=== PATIENT | female | born 1930 | race Caucasian/White ===

== ENCOUNTER 2018-08-28 12:37 | Inpatient (IN) | payer MEDICARE, OTHER, MEDICAID ==
--- NOTE | 2018-08-28 13:15 | RADIOLOGY REPORT (SQ) ---
EXAM DESCRIPTION: CHEST SINGLE VIEW COMPLETED DATE/TIME: 08/28/2018 1:08 pm REASON FOR STUDY: sob COMPARISON: 02/18/2015 EXAM PARAMETERS: NUMBER OF VIEWS: One view. TECHNIQUE: Single frontal radiographic view of the chest acquired. RADIATION DOSE: NA LIMITATIONS: None. FINDINGS: LUNGS AND PLEURA: Cannot exclude limited opacification in the right base. Cannot exclude mild pulmonary edema. MEDIASTINUM AND HILAR STRUCTURES: No masses. Contour normal. HEART AND VASCULAR STRUCTURES: Cardiomegaly PE BONES: No acute findings. HARDWARE: None in the chest. OTHER: No other significant finding. IMPRESSION: Cardiomegaly. Cannot exclude mild pulmonary edema. Cannot exclude limited right lower lobe pneumonia. TECHNICAL DOCUMENTATION: JOB ID: [id number] [employer]- All Rights Reserved Reading location - IP/workstation name: [email or web address]
[2018-08-28 13:22] LABS: ABSOLUTE LYMPHOCYTES (AUTO) 0.6 10^3/uL (0.5-4.7); ABSOLUTE MONOCYTES (AUTO) 0.3 10^3/uL (0.1-1.4); ABSOLUTE NEUT (AUTO) 4.3 10^3/uL (1.7-8.2); BASOPHILS % (AUTO) 0.7 % (0-2); EOSINOPHILS % (AUTO) 0.1 % (0-6); HEMATOCRIT 26.1 % (36.0-47.0); LYMPHOCYTES % (AUTO) 11.9 % (13-45); MEAN CORPUSCULAR HEMOGLOBIN 22.7 pg (27.0-33.4); MEAN CORPUSCULAR HGB CONC 30.8 g/dL (32.0-36.0); MEAN CORPUSCULAR VOLUME 74 fl (80-97); MONOCYTES % (AUTO) 5.8 % (3-13); PLATELET COUNT 152 10^3/uL (150-450); RED BLOOD COUNT 3.54 10^6/uL (3.72-5.28); RED CELL DISTRIBUTION WIDTH 21.2 % (11.5-14.0); SEGMENTED NEUTROPHILS % (AUTO) 81.5 % (42-78); TOTAL CELLS COUNTED % (AUTO) 100 %; WHITE BLOOD COUNT 5.3 10^3/uL (4.0-10.5)
[2018-08-28 13:27] LABS: INTERNATIONAL RATION (INR) 1.49; PROTHROMBIN TIME 18.8 SEC (11.4-15.4)
[2018-08-28 13:38] LABS: ALANINE AMINOTRANSFERASE 24 U/L (9-52); ALBUMIN 2.6 g/dL (3.5-5.0); ALKALINE PHOSPHATASE 72 U/L (38-126); ASPARTATE AMINO TRANSFERASE 17 U/L (14-36); BILIRUBIN,DIRECT 0.4 mg/dL (0.0-0.4); BILIRUBIN,TOTAL 0.7 mg/dL (0.2-1.3); BLOOD UREA NITROGEN 19 mg/dL (7-20); CALCIUM 8.4 mg/dL (8.4-10.2); GLUCOSE 102 mg/dL (75-110); POTASSIUM 3.9 mmol/L (3.6-5.0); TOTAL PROTEIN 6.1 g/dL (6.3-8.2)
[2018-08-28 13:43] LABS: ANION GAP 6 (5-19); CARBON DIOXIDE 28 mmol/L (22-30); CHLORIDE 108 mmol/L (98-107); SODIUM 141.5 mmol/L (137-145)
[2018-08-28] MEDS ORDERED: VANCOMYCIN HCL INJ 1000 MG VIAL IV ONE ×2 (13:57→16:30)
[2018-08-28] MEDS ORDERED: CEFEPIME 1 GM/D5W RTU 1 GM/50 ML RTUPB IV SCH ×2 (14:00→17:00)
--- NOTE | 2018-08-28 14:22 | ER Document Report ---
Entered by DYAN CISNEROS SCRIBE 08/28/18 1314 Acting as scribe for:BIB BRYSON DO ED Respiratory Problem - General Stated Complaint: SHORTNESS OF BREATH Time Seen by Provider: 08/28/18 12:53 Notes: 87-year-old female who presents to the emergency department today with complaints of "worsening pneumonia" according to EMS. The patient is demented at baseline and is nonverbal at baseline so history is limited. According to [facility] records, the patient has been on Levaquin for x1 week for pneumonia. TRAVEL OUTSIDE OF THE [place] IN LAST 30 DAYS: No - Related Data Allergies/Adverse Reactions: No Known Allergies Allergy (Verified 04/13/14 20:26) Past Medical History - General Information source: Emergency Med Personnel, [facility] Records - Social History Smoking Status: Unknown if Ever Smoked Family History: Reviewed & Not Pertinent - Past Medical History Cardiac Medical History: Reports: Hx Atrial Fibrillation, Hx Congestive Heart Failure, Hx Heart Attack, Hx Hypercholesterolemia, Hx Hypertension Neurological Medical History: Reports: Hx Cerebrovascular Accident - HEMORRHAGIC CVA GI Medical History: Reports: Hx Gastroesophageal Reflux Disease Musculoskeletal Medical History: Reports Hx Arthritis Psychiatric Medical History: Reports: Hx Dementia, Hx Depression Past Surgical History: Reports: Hx Cardiac Surgery - MV REPAIR - Immunizations Hx Diphtheria, Pertussis, Tetanus Vaccination: No Hx Pneumococcal Vaccination: 06/12/14 Review of Systems - Review of Systems -: Yes ROS unobtainable due to patient's medical condition Physical Exam - Vital signs Interpretation: Hypoxic - General General appearance: Alert In distress: Mild - HEENT Head: Atraumatic Neck: Normal - Respiratory Respiratory status: Respiratory distress - mild Breath sounds: Rales - R base - Cardiovascular Rhythm: Regular - Abdominal Tenderness: Nontender - Extremities General upper extremity: Other - RUE wnl General lower extremity: Other - at baseline - Neurological Neuro grossly intact: Yes - at cognitive baseline Course - Re-evaluation Re-evalutation: 08/28/18 13:28 Patient is an 87-year-old female who has had increased trouble breathing at her facility. She has been on Levaquin recently for pneumonia. Chest x-ray showing right lower lobe pneumonia that is persistent. Patient is in some mild distress although she is resting comfortably on nasal cannula. Of note, she is DNR/DNI. Culture sent, antibiotics initiated. Patient with hemoglobin of 8. Per old records she has h/o anemia and is also a [employer]. Called Dr. Sood, accepts patient for admission. - Laboratory Result Diagrams: 08/28/18 13:07 08/28/18 13:07 Laboratory results interpreted by me: 08/28/18 08/28/18 08/28/18 13:07 13:07 13:07 RBC 3.54 L Hgb 8.0 L Hct 26.1 L MCV 74 L MCH 22.7 L MCHC 30.8 L RDW 21.2 H Seg Neutrophils % 81.5 H Lymphocytes % 11.9 L PT 18.8 H Chloride 108 H Total Protein 6.1 L Albumin 2.6 L - Diagnostic Test Radiology reviewed: Image reviewed, Reports reviewed - EKG Interpretation by Me EKG shows normal: Sinus rhythm Discharge - Discharge Clinical Impression: Hypoxia Pneumonia Qualifiers: Pneumonia type: due to unspecified organism Laterality: right Lung location: lower lobe of lung Qualified Code(s): J18.1 - Lobar pneumonia, unspecified organism Condition: Stable Disposition: ADMITTED INPATIENT Admitting Provider: [facility] Admitted: Medical Floor Scribe Attestation: 08/28/18 14:21 I personally performed the services described in the documentation, reviewed and edited the documentation which was dictated to the scribe in my presence, and it accurately records my words and actions. I personally performed the services described in the documentation, reviewed and edited the documentation which was dictated to the scribe in my presence, and it accurately records my words and actions.
[2018-08-28] MEDS ORDERED: (PENDING PHARMACY ID) (Multivitamin/Iron/Folic Acid [Centrum Complete Multivit Tab] 1 TAB) PO SCH (20:00)
[2018-08-28] MEDS ORDERED: CEFEPIME 2 GM/D5W RTU 50 ML IV SCH (20:00)
[2018-08-28] MEDS ORDERED: ENOXAPARIN SODIUM SQ SCH (20:00)
[2018-08-28] MEDS ORDERED: (PENDING PHARMACY ID) (Calcium Carbonate/Vitamin D3 [Calcium 600 + Vit D 400 Tablet] 1 TAB PO SCH (20:00)
[2018-08-28] MEDS ORDERED: PEG OU SCH ×2 (20:00→20:45)
[2018-08-28] MEDS ORDERED: PROPYLENE GLYCOL OU SCH ×2 (20:00→20:45)
[2018-08-28 20:16] LABS: VENOUS BLOOD BASE EXCESS 2.2 mmol/L; VENOUS BLOOD PCO2 42.8 mmHg (35-63); VENOUS BLOOD PH 7.42 (7.30-7.42)
[2018-08-28 20:29] LABS: CREATINE KINASE < 20 U/L (30-135)
--- NOTE | 2018-08-28 20:52 | RADIOLOGY REPORT (SQ) ---
EXAM DESCRIPTION: CT CHEST WITHOUT IV CONTRAST COMPLETED DATE/TME: 08/28/2018 00:00 CLINICAL HISTORY: 87 years Female pneumonia COMPARISON: None. TECHNIQUE: Contiguous axial images obtained through the chest without IV contrast. Reformatted images obtained. This exam was performed according to our department optimization program which includes automated exposure control, adjustment of the mA and/or kv according to patient size and/or use of iterative reconstruction technique. FINDINGS: The aorta is elongated and calcified. Coronary calcification. Marked cardiac enlargement. Bilateral pleural effusions. There is a paucity of subcutaneous fat. There is alveolar infiltrate in the right upper and right lower lobe concerning for pneumonia. Small amount of patchy density and atelectasis in the right middle lobe and in the left lung base and lingula. Vertebral plana with vertebral plasty changes at T12. There is moderate compression at L1 and moderate to severe compression at T11. Vertebra plana at T8 and T5, and T3. Mild compression at T2. Old sternal fracture. Staghorn calculus in the left kidney. Calculi in the right kidney. IMPRESSION: Marked cardiac enlargement Alveolar infiltrate in the right upper and lower lobe concerning for pneumonia with bilateral pleural effusions. Asymmetric edema is not excluded but thought less likely Patchy areas of atelectasis or early infiltrate on the left Numerous vertebral compression fractures as described Bilateral renal calculi Subcutaneous edema which may reflect anasarca
--- NOTE | 2018-08-28 20:52 | PDOC H&P ---
History of Present Illness Admission Date/PCP: 08/28/18 14:12 BROWN CHOU MD History of Present Illness: JONATHAN OROZCO is a 87 year old female, she has multiple comorbid conditions, very advanced dementia, resident of the skilled nursing at [facility], she was transferred from the skilled nursing to the emergency room at [facility] for evaluation of pneumonia. She was treated at the skilled nursing for right lower lobe pneumonia with antibiotic Levaquin for the last 7 days, patient condition continues to decline, she is more symptomatic with increased work of breathing. I received a call from the skilled nursing staff that patient condition was not improving a skilled nursing staff was requesting to have another chest x- ray done, I advised the skilled nursing staff to call the family to find out what plan of action they preferred for the patient knowing that patient is advanced dementia with adult failure to thrive and to me she looks like she is moribund, family preferred that patient be referred to the hospital. In the emergency room she was evaluated a chest x-ray was done that suggest pneumonia. CT chest of the lung was done without contrast demonstrated elongated aorta and calcified, coronary calcification, marked cardiac enlargement, bilateral pleural effusion, alveolar infiltrate in the right upper and right lower lobe concerning for pneumonia small amount of patchy density, atelectasis in the right middle lobe the left lung base. There is osteoporotic moderate compression at L1, severe compression at T12 also found was a staghorn calculus in the left kidney. No history could be obtained for this patient because of the advanced dementia, she has poor language skills, patient overall condition is very poor, she is a DNR status. Past Medical History Cardiac Medical History: Reports: Atrial Fibrillation, Congestive Heart Failure, Myocardial Infarction, Hyperlipidema, Hypertension GI Medical History: Reports: Gastroesophageal Reflux Disease Musculoskeltal Medical History: Reports: Arthritis Psychiatric Medical History: Reports: Dementia, Depression Hematology: Reports: Anemia Social History Smoking Status: Former Smoker Frequency of Alcohol Use: None Hx Recreational Drug Use: No Hx Prescription Drug Abuse: No Family History Family History: Reviewed & Not Pertinent Parental Family History Reviewed: Yes Children Family History Reviewed: Yes Sibling(s) Family History Reviewed.: Yes Medication/Allergy Home Medications: Aliskiren Hemifumarate [Tekturna 150 mg Tablet] 150 mg PO DAILY 08/28/18 Aripiprazole [Abilify 5 mg Tablet] 5 mg PO QHS 08/28/18 Aspirin [Aspirin 81 mg Chewable Tablet] 81 mg PO DAILY 08/28/18 Calcium Carbonate/Vitamin D3 [Calcium 600 + Vit D 400 Tablet] 1 tab PO BID 08/28/18 Cyanocobalamin (Vitamin B-12) [Vitamin B-12 1000 mcg Tablet] 1,000 mcg PO DAILY 08/28/18 Diltiazem HCl [Cardizem 30 mg Tablet] 30 mg PO Q8 08/28/18 Enoxaparin Sodium [Lovenox Inj 60 mg/0.6 ml Disp.syrin] 45 mg SQ Q12 08/28/18 Montelukast Sodium [Singulair 10 mg Tablet] 10 mg PO QHS 08/28/18 Multivitamin/Iron/Folic Acid [Centrum Complete Multivit Tab] 1 tab PO DAILY 08/28/18 Propylene Glycol/Peg 400/Pf [Systane 0.3-0.4% Eye Drop] 1 drop OU BID 08/28/18 RX: Ergocalciferol (Vitamin D2) [Drisdol 50,000 unit (1.25MG) Capsule] 50,000 unit PO [id number] 08/28/18 RX: Mirtazapine 7.5 mg PO QHS 08/28/18 Rivastigmine [Exelon 9.5 mg/24 Hr Transdermal Patch] 1 patch TOP DAILY 08/28/18 Sennosides/Docusate 8.6-50 mg [Senna Plus Tablet] 2 tab PO Q12 08/28/18 Sertraline HCl [Zoloft 50 mg Tablet] 50 mg PO DAILY 08/28/18 Allergies/Adverse Reactions: No Known Allergies Allergy (Verified 04/13/14 20:26) Review of Systems ROS unobtainable: Other - Dementia Physical Exam Vital Signs: Temp Pulse Resp BP Pulse Ox 97.8 F 22 H 137/59 H 100 08/28/18 13:02 08/28/18 19:00 08/28/18 19:00 08/28/18 19:00 Intake & Output 08/27/18 08/28/18 08/29/18 06:59 06:59 06:59 Intake Total 50 Balance 50 General appearance: PRESENT: other - Patient elderly female, looks moribund, extreme cachexia intercostal space retraction Eye exam: PRESENT: PERRLA Respiratory exam: PRESENT: accessory muscle use, rales, retraction Cardiovascular exam: PRESENT: irregular rhythm, +S1, +S2 GI/Abdominal exam: PRESENT: soft Extremities exam: PRESENT: other - There is extreme muscle atrophy Neurological exam: PRESENT: alert, other Skin exam: PRESENT: dry, other - Skin is dry, ecchymosis Results Laboratory Results: 08/28/18 13:07 08/28/18 13:07 08/28/18 08/28/18 08/28/18 13:07 13:07 13:50 WBC 5.3 RBC 3.54 L Hgb 8.0 L Hct 26.1 L MCV 74 L MCH 22.7 L MCHC 30.8 L RDW 21.2 H Plt Count 152 Seg Neutrophils % 81.5 H Lymphocytes % 11.9 L Monocytes % 5.8 Eosinophils % 0.1 Basophils % 0.7 Absolute Neutrophils 4.3 Absolute Lymphocytes 0.6 Absolute Monocytes 0.3 Absolute Eosinophils 0.0 Absolute Basophils 0.0 VBG pH VBG pCO2 VBG HCO3 VBG Base Excess Sodium 141.5 Potassium 3.9 Chloride 108 H Carbon Dioxide 28 Anion Gap 6 BUN 19 Creatinine 0.69 Est GFR ( Amer) > 60 Est GFR (Non-Af Amer) > 60 Glucose 102 Lactic Acid 1.2 Calcium 8.4 Total Bilirubin 0.7 AST 17 ALT 24 Alkaline Phosphatase 72 Total Protein 6.1 L Albumin 2.6 L 08/28/18 19:37 WBC RBC Hgb Hct MCV MCH MCHC RDW Plt Count Seg Neutrophils % Lymphocytes % Monocytes % Eosinophils % Basophils % Absolute Neutrophils Absolute Lymphocytes Absolute Monocytes Absolute Eosinophils Absolute Basophils VBG pH 7.42 VBG pCO2 42.8 VBG HCO3 27.0 VBG Base Excess 2.2 Sodium Potassium Chloride Carbon Dioxide Anion Gap BUN Creatinine Est GFR ( Amer) Est GFR (Non-Af Amer) Glucose Lactic Acid Calcium Total Bilirubin AST ALT Alkaline Phosphatase Total Protein Albumin 08/28/18 08/28/18 13:07 13:07 Creatine Kinase < 20 L Troponin I 0.013 Impressions: Chest X-Ray 08/28/18 12:55 IMPRESSION: Cardiomegaly. Cannot exclude mild pulmonary edema. Cannot exclude limited right lower lobe pneumonia. Assessment & Plan - Diagnosis (1) Bilateral pneumonia Qualifiers: Pneumonia type: due to unspecified organism Lung location: unspecified part of lung Qualified Code(s): J18.9 - Pneumonia, unspecified organism Is this a current diagnosis for this admission?: Yes Plan: She has bilateral pneumonia, she was treated with Levaquin for 7 days in the skilled nursing, cefepime will be added to cover Pseudomonas. Patient is obviously in respiratory distress but she is maintaining adequate oxygenation on nasal cannula, she is not. Candidate for intubation. She has multiple comorbid conditions (2) Staghorn calculus Is this a current diagnosis for this admission?: Yes Plan: The serum creatinine is normal (3) Dementia Qualifiers: Dementia type: Alzheimer's disease Alzheimer's disease onset: unspecified onset Dementia behavioral disturbance: with behavioral disturbance Qualified Code(s): G30.9 - Alzheimer's disease, unspecified; F02.81 - Dementia in other diseases classified elsewhere with behavioral disturbance Is this a current diagnosis for this admission?: Yes
[2018-08-28] MEDS ORDERED: CEFEPIME 1 GM/D5W RTU 1 GM/50 ML RTUPB IV ONE (22:00)
[2018-08-28] MEDS: IPRATROPIUM/ALBUTEROL 0.5-2.5 MG/3 ML AMPUL NEB PRN (22:04)
[2018-08-28] MEDS: MIRTAZAPINE 15 MG TABLET PO SCH (22:48)
[2018-08-28] MEDS: SENNOSIDES/DOCUSATE 8.6-50 MG 1 EACH TABLET PO SCH (22:48)
[2018-08-28] MEDS: DILTIAZEM HCL 30 MG TABLET PO SCH (22:48)
[2018-08-28] MEDS: MONTELUKAST SODIUM 10 MG TABLET PO SCH (22:48)
[2018-08-28] MEDS: ARIPIPRAZOLE 5 MG TABLET PO SCH (22:48)
--- NOTE | 2018-08-28 22:58 | EKG REPORT ---
SEVERITY:- ABNORMAL ECG - ATRIAL FIBRILLATION MULTIFORM VENTRICULAR PREMATURE COMPLEXES BORDERLINE IVCD WITH LAD : Confirmed by: Braydon Foster 28-Aug-2018 22:57:44
[2018-08-28 23:40] LABS: CREATINE KINASE MB < 0.22 ng/mL (<4.55); TROPONIN I < 0.012 ng/mL
[2018-08-29] MEDS: DILTIAZEM HCL 30 MG TABLET PO SCH ×3 (06:22→21:15)
[2018-08-29 07:06] LABS: ABSOLUTE LYMPHOCYTES (AUTO) 0.6 10^3/uL (0.5-4.7); ABSOLUTE MONOCYTES (AUTO) 0.3 10^3/uL (0.1-1.4); ABSOLUTE NEUT (AUTO) 6.3 10^3/uL (1.7-8.2); BASOPHILS % (AUTO) 0.4 % (0-2); EOSINOPHILS % (AUTO) 0.1 % (0-6); HEMATOCRIT 27.4 % (36.0-47.0); HEMOGLOBIN 8.6 g/dL (12.0-15.5); LYMPHOCYTES % (AUTO) 8.7 % (13-45); MEAN CORPUSCULAR HGB CONC 31.3 g/dL (32.0-36.0); MEAN CORPUSCULAR VOLUME 74 fl (80-97); MONOCYTES % (AUTO) 3.7 % (3-13); PLATELET COUNT 164 10^3/uL (150-450); RED BLOOD COUNT 3.73 10^6/uL (3.72-5.28); RED CELL DISTRIBUTION WIDTH 21.3 % (11.5-14.0); SEGMENTED NEUTROPHILS % (AUTO) 87.1 % (42-78); TOTAL CELLS COUNTED % (AUTO) 100 %; WHITE BLOOD COUNT 7.2 10^3/uL (4.0-10.5)
[2018-08-29 07:25] LABS: ALANINE AMINOTRANSFERASE 19 U/L (9-52); ALBUMIN 2.7 g/dL (3.5-5.0); ALKALINE PHOSPHATASE 72 U/L (38-126); ANION GAP 9 (5-19); ASPARTATE AMINO TRANSFERASE 20 U/L (14-36); BILIRUBIN,DIRECT 0.4 mg/dL (0.0-0.4); BILIRUBIN,TOTAL 0.8 mg/dL (0.2-1.3); BLOOD UREA NITROGEN 18 mg/dL (7-20); CALCIUM 8.6 mg/dL (8.4-10.2); CARBON DIOXIDE 26 mmol/L (22-30); CHLORIDE 106 mmol/L (98-107); GLUCOSE 88 mg/dL (75-110); POTASSIUM 3.8 mmol/L (3.6-5.0); SODIUM 141.1 mmol/L (137-145); TOTAL PROTEIN 6.2 g/dL (6.3-8.2)
[2018-08-29 08:12] LABS: AMORPHOUS SEDIMENT,URINE TRACE /HPF; APPEARANCE,URINE CLOUDY; BILIRUBIN,URINE NEGATIVE (NEGATIVE); COLOR,URINE YELLOW; GLUCOSE, URINE NEGATIVE (NEGATIVE); KETONES,URINE NEGATIVE (NEGATIVE); LEUKOCYTE ESTERASE,URINE LARGE (NEGATIVE); NITRITE,URINE NEGATIVE (NEGATIVE); PROTEIN,URINE 30 mg/dL (NEGATIVE); URINE SPECIFIC GRAVITY 1.011; UROBILINOGEN,URINE NEGATIVE mg/dL (<2.0)
[2018-08-29 08:21] LABS: URINE CREATININE 27.9 mg/dL (15-278)
[2018-08-29] MEDS: IPRATROPIUM/ALBUTEROL 0.5-2.5 MG/3 ML AMPUL NEB PRN ×2 (08:53→20:29)
[2018-08-29] MEDS ORDERED: PRENATAL VITAMIN W DHA CAPSULE PO SCH (10:00)
[2018-08-29] MEDS: RIVASTIGMINE 9.5 MG/24 HR PATCH.TD24 TOP SCH (10:08)
[2018-08-29] MEDS: ALISKIREN HEMIFUMARATE 150 MG TABLET PO SCH (10:08)
[2018-08-29] MEDS: SERTRALINE HCL 50 MG TABLET PO SCH (10:08)
[2018-08-29] MEDS: CEFEPIME 1 GM/D5W RTU 1 GM/50 ML RTUPB IV SCH (10:09)
[2018-08-29] MEDS: NORMAL SALINE 1000 ML 1,000 ML IV PRN (10:14)
[2018-08-29] MEDS: CYANOCOBALAMIN (VITAMIN B-12) 1,000 MCG TABLET PO SCH (10:19)
[2018-08-29] MEDS: SENNOSIDES/DOCUSATE 8.6-50 MG 1 EACH TABLET PO SCH ×2 (10:20→21:14)
[2018-08-29] MEDS: MULTIVITAMIN TABLET PO SCH (10:20)
[2018-08-29] MEDS: CALCIUM CARBONATE 250 MG/VITAMIN D3 125 UNIT TABLET PO SCH ×2 (10:20→17:28)
[2018-08-29] MEDS ORDERED: ENOXAPARIN SODIUM INJ 40 MG/0.4 ML DISP.SYRIN SUBCUT SCH (14:00)
[2018-08-29 14:44] LABS: ARTERIAL BLOOD BASE EXCESS 2.5 mmol/L; ARTERIAL BLOOD H2CO3 0.98 mmol/L (1.05-1.35); ARTERIAL BLOOD HCO3 25.3 mmol/L (20-24); ARTERIAL BLOOD O2 SATURATION 94.8 % (94-98); ARTERIAL BLOOD PCO2 32.7 mmHg (35-45); ARTERIAL BLOOD PH 7.51 (7.35-7.45); ARTERIAL BLOOD PO2 65.8 mmHg (80-100); ARTERIAL BLOOD TOTAL CO2 26.3 mmol/L (21-25)
[2018-08-29 14:45] LABS: ARTERIAL BLOOD FIO2 2.5 L
--- NOTE | 2018-08-29 14:57 | PDOC PROGRESS REPORT ---
Subjective Progress Note for:: 08/29/18 Subjective:: Patient was seen by the bedside, overall condition is very poor Reason For Visit: PNEUMONIA, FAILED OUTPATIENT TREATMENT Physical Exam Vital Signs: Temp Pulse Resp BP Pulse Ox 98.7 F 92 32 H 152/60 H 98 08/29/18 11:25 08/29/18 11:25 08/29/18 11:25 08/29/18 11:25 08/29/18 12:00 Pulse Oximeter Continuous Start: 08/28/18 19 :51 Freq: RTQ4 Status: Active Protocol: Document 08/29/18 12:00 [facility] (Rec: 08/29/18 12:12 [facility] [id number]) Pulse Oximetry Assessment Oxygen Saturation (92-100) 98 Oxygen Flow Rate (L/min) 2 Oxygen Delivery Method Nasal Cannula Equipment Usage Equipment in Use Continuous SpO2 Machine # 5 Intake & Output 08/28/18 08/29/18 08/30/18 06:59 06:59 06:59 Intake Total 227 200 Balance 227 200 Weight 41.3 kg General appearance: PRESENT: mild distress Respiratory exam: PRESENT: accessory muscle use, retraction, rhonchi Cardiovascular exam: PRESENT: irregular rhythm, +S1, +S2 GI/Abdominal exam: PRESENT: soft Neurological exam: PRESENT: alert Results Laboratory Results: 08/29/18 06:11 08/29/18 06:11 08/28/18 08/29/18 08/29/18 19:37 06:11 06:11 WBC 7.2 RBC 3.73 Hgb 8.6 L Hct 27.4 L MCV 74 L MCH 23.0 L MCHC 31.3 L RDW 21.3 H Plt Count 164 Seg Neutrophils % 87.1 H Lymphocytes % 8.7 L Monocytes % 3.7 Eosinophils % 0.1 Basophils % 0.4 Absolute Neutrophils 6.3 Absolute Lymphocytes 0.6 Absolute Monocytes 0.3 Absolute Eosinophils 0.0 Absolute Basophils 0.0 Carbonic Acid HCO3/H2CO3 Ratio ABG pH ABG pCO2 ABG pO2 ABG HCO3 ABG O2 Saturation ABG Base Excess VBG pH 7.42 VBG pCO2 42.8 VBG HCO3 27.0 VBG Base Excess 2.2 FiO2 Sodium 141.1 Potassium 3.8 Chloride 106 Carbon Dioxide 26 Anion Gap 9 BUN 18 Creatinine 0.63 Est GFR ( Amer) > 60 Est GFR (Non-Af Amer) > 60 Glucose 88 Calcium 8.6 Total Bilirubin 0.8 AST 20 ALT 19 Alkaline Phosphatase 72 Total Protein 6.2 L Albumin 2.7 L Urine Color Urine Appearance Urine pH Ur Specific [place] Urine Protein Urine Glucose (UA) Urine Ketones Urine Blood Urine Nitrite Ur Leukocyte Esterase Urine WBC (Auto) Urine RBC (Auto) 08/29/18 08/29/18 07:30 14:25 WBC RBC Hgb Hct MCV MCH MCHC RDW Plt Count Seg Neutrophils % Lymphocytes % Monocytes % Eosinophils % Basophils % Absolute Neutrophils Absolute Lymphocytes Absolute Monocytes Absolute Eosinophils Absolute Basophils Carbonic Acid 0.98 L HCO3/H2CO3 Ratio 25:1 ABG pH 7.51 H ABG pCO2 32.7 L ABG pO2 65.8 L ABG HCO3 25.3 H ABG O2 Saturation 94.8 ABG Base Excess 2.5 VBG pH VBG pCO2 VBG HCO3 VBG Base Excess FiO2 2.5 L Sodium Potassium Chloride Carbon Dioxide Anion Gap BUN Creatinine Est GFR ( Amer) Est GFR (Non-Af Amer) Glucose Calcium Total Bilirubin AST ALT Alkaline Phosphatase Total Protein Albumin Urine Color YELLOW Urine Appearance CLOUDY Urine pH 6.0 Ur Specific [place] 1.011 Urine Protein 30 H Urine Glucose (UA) NEGATIVE Urine Ketones NEGATIVE Urine Blood MODERATE H Urine Nitrite NEGATIVE Ur Leukocyte Esterase LARGE H Urine WBC (Auto) >182 Urine RBC (Auto) 38 08/28/18 08/28/18 08/28/18 13:07 13:07 22:42 Creatine Kinase < 20 L CK-MB (CK-2) < 0.22 Troponin I 0.013 < 0.012 Impressions: Chest CT 08/28/18 00:00 IMPRESSION: Marked cardiac enlargement Alveolar infiltrate in the right upper and lower lobe concerning for pneumonia with bilateral pleural effusions. Asymmetric edema is not excluded but thought less likely Patchy areas of atelectasis or early infiltrate on the left Numerous vertebral compression fractures as described Bilateral renal calculi Subcutaneous edema which may reflect anasarca Chest X-Ray 08/28/18 12:55 IMPRESSION: Cardiomegaly. Cannot exclude mild pulmonary edema. Cannot exclude limited right lower lobe pneumonia. Assessment & Plan - Diagnosis (1) Adult failure to thrive Is this a current diagnosis for this admission?: Yes (2) Bilateral pneumonia Qualifiers: Pneumonia type: due to unspecified organism Lung location: unspecified part of lung Qualified Code(s): J18.9 - Pneumonia, unspecified organism Is this a current diagnosis for this admission?: Yes Plan: She has bilateral pneumonia, very poor prognosis, Continue present treatment, will consider palliative/comfort care for this patient extremely poor prognosis (3) Staghorn calculus Is this a current diagnosis for this admission?: Yes Plan: The serum creatinine is normal but she has severe muscle atrophy, she 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 the serum creatinine in this setting is a poor measure of kidney function (4) Dementia Qualifiers: Dementia type: Alzheimer's disease Alzheimer's disease onset: unspecified onset Dementia behavioral disturbance: with behavioral disturbance Qualified Code(s): G30.9 - Alzheimer's disease, unspecified; F02.81 - Dementia in other diseases classified elsewhere with behavioral disturbance Is this a current diagnosis for this admission?: Yes (5) Proteinuria Qualifiers: Proteinuria type: unspecified Qualified Code(s): R80.9 - Proteinuria, unspecified Is this a current diagnosis for this admission?: Yes (6) Cachexia Is this a current diagnosis for this admission?: Yes (7) Undernutrition Is this a current diagnosis for this admission?: Yes
[2018-08-29] MEDS: ENOXAPARIN SODIUM INJ 60 MG/0.6 ML DISP.SYRIN SUBCUT SCH ×2 (17:46→17:47)
[2018-08-29] MEDS ORDERED: CEFEPIME 1 GM/D5W RTU 1 GM/50 ML RTUPB IV SCH (18:00)
[2018-08-29] MEDS: MONTELUKAST SODIUM 10 MG TABLET PO SCH (21:14)
[2018-08-29] MEDS: ARIPIPRAZOLE 5 MG TABLET PO SCH (21:14)
[2018-08-29] MEDS: MIRTAZAPINE 15 MG TABLET PO SCH (21:15)
[2018-08-30] MEDS: NORMAL SALINE 1000 ML 1,000 ML IV PRN ×2 (00:50→18:13)
[2018-08-30 05:39] LABS: ABSOLUTE LYMPHOCYTES (AUTO) 0.5 10^3/uL (0.5-4.7); ABSOLUTE MONOCYTES (AUTO) 0.2 10^3/uL (0.1-1.4); ABSOLUTE NEUT (AUTO) 5.3 10^3/uL (1.7-8.2); BASOPHILS % (AUTO) 0.2 % (0-2); EOSINOPHILS % (AUTO) 0.2 % (0-6); HEMATOCRIT 25.3 % (36.0-47.0); LYMPHOCYTES % (AUTO) 7.8 % (13-45); MEAN CORPUSCULAR HEMOGLOBIN 22.6 pg (27.0-33.4); MEAN CORPUSCULAR HGB CONC 31.3 g/dL (32.0-36.0); MEAN CORPUSCULAR VOLUME 72 fl (80-97); MONOCYTES % (AUTO) 3.1 % (3-13); PLATELET COUNT 172 10^3/uL (150-450); RED BLOOD COUNT 3.49 10^6/uL (3.72-5.28); RED CELL DISTRIBUTION WIDTH 21.3 % (11.5-14.0); SEGMENTED NEUTROPHILS % (AUTO) 88.7 % (42-78); TOTAL CELLS COUNTED % (AUTO) 100 %
[2018-08-30 05:42] LABS: HEMOGLOBIN 7.9 g/dL (12.0-15.5)
[2018-08-30] MEDS: DILTIAZEM HCL 30 MG TABLET PO SCH ×3 (05:49→21:47)
[2018-08-30 07:41] LABS: ALANINE AMINOTRANSFERASE 18 U/L (9-52); ALBUMIN 2.3 g/dL (3.5-5.0); ALKALINE PHOSPHATASE 64 U/L (38-126); ANION GAP 7 (5-19); ASPARTATE AMINO TRANSFERASE 19 U/L (14-36); BILIRUBIN,DIRECT 0.6 mg/dL (0.0-0.4); BILIRUBIN,TOTAL 0.9 mg/dL (0.2-1.3); BLOOD UREA NITROGEN 18 mg/dL (7-20); CALCIUM 8.1 mg/dL (8.4-10.2); CARBON DIOXIDE 27 mmol/L (22-30); CHLORIDE 108 mmol/L (98-107); GLUCOSE 90 mg/dL (75-110); TOTAL PROTEIN 5.5 g/dL (6.3-8.2)
[2018-08-30] MEDS: CEFEPIME 1 GM/D5W RTU 1 GM/50 ML RTUPB IV SCH (09:54)
[2018-08-30] MEDS: RIVASTIGMINE 9.5 MG/24 HR PATCH.TD24 TOP SCH (09:54)
[2018-08-30] MEDS: SERTRALINE HCL 50 MG TABLET PO SCH (09:55)
[2018-08-30] MEDS: ALISKIREN HEMIFUMARATE 150 MG TABLET PO SCH (09:55)
[2018-08-30] MEDS: SENNOSIDES/DOCUSATE 8.6-50 MG 1 EACH TABLET PO SCH ×2 (09:55→21:46)
[2018-08-30] MEDS: CYANOCOBALAMIN (VITAMIN B-12) 1,000 MCG TABLET PO SCH (10:00)
[2018-08-30] MEDS: CALCIUM CARBONATE 250 MG/VITAMIN D3 125 UNIT TABLET PO SCH ×2 (10:00→17:05)
[2018-08-30] MEDS: MULTIVITAMIN TABLET PO SCH (10:00)
[2018-08-30] MEDS ORDERED: POTASSIUM CHLORIDE 10 MEQ CAPSULE.ER PO SCH (12:00)
[2018-08-30] MEDS ORDERED: MORPHINE SULFATE 10 MG/ML INJ IV PRN (12:03)
[2018-08-30] MEDS: POTASSIUM CHLORIDE 20 MEQ/15 ML UDCUP PO SCH (14:12)
--- NOTE | 2018-08-30 14:24 | PDOC PROGRESS REPORT ---
Subjective Progress Note for:: 08/30/18 Subjective:: Patient was seen by the bedside, altered mental status, osteoporosis, patient's condition very poor, this is more of end-of-life situation. I recommended hospice consultation for this patient, she is very advanced age with multiple comorbid conditions, extremely poor performance status, severe cachexia, hardly able to speak she is manifesting symptoms and signs of sepsis prognosis is very poor Reason For Visit: PNEUMONIA, FAILED OUTPATIENT TREATMENT Physical Exam Vital Signs: Temp Pulse Resp BP Pulse Ox 98.3 F 78 32 H 157/65 H 85 L 08/30/18 12:38 08/30/18 12:38 08/30/18 12:38 08/30/18 12:38 08/30/18 12:38 Pulse Oximeter Continuous Start: 08/28/18 19:51 Freq: RTQ4 Status: Active Protocol: Document 08/30/18 12:00 [facility] (Rec: 08/30/18 12:43 [facility] [id number]) Pulse Oximetry Assessment Oxygen Saturation (92-100) 96 Oxygen Flow Rate (L/min) 3.5 Oxygen Delivery Method Nasal Cannula Fraction of Inspired Oxygen (FIO2) 34 Equipment Usage Equipment in Use Continuous SpO2 Machine # 5 Intake & Output 08/29/18 08/30/18 08/31/18 06:59 06:59 06:59 Intake Total 227 1523 50 Balance 227 1523 50 Weight 41.3 kg 46.3 kg General appearance: PRESENT: other - Elderly female stuporous not verbalizing much Eye exam: PRESENT: PERRLA Respiratory exam: PRESENT: rhonchi Cardiovascular exam: PRESENT: +S1, +S2 GI/Abdominal exam: PRESENT: soft Results Laboratory Results: 08/30/18 05:08 08/30/18 06:24 08/29/18 08/30/18 08/30/18 14:25 05:08 05:08 WBC 6.0 RBC 3.49 L Hgb 7.9 L Hct 25.3 L MCV 72 L MCH 22.6 L MCHC 31.3 L RDW 21.3 H Plt Count 172 Seg Neutrophils % 88.7 H Lymphocytes % 7.8 L Monocytes % 3.1 Eosinophils % 0.2 Basophils % 0.2 Absolute Neutrophils 5.3 Absolute Lymphocytes 0.5 Absolute Monocytes 0.2 Absolute Eosinophils 0.0 Absolute Basophils 0.0 Carbonic Acid 0.98 L HCO3/H2CO3 Ratio 25:1 ABG pH 7.51 H ABG pCO2 32.7 L ABG pO2 65.8 L ABG HCO3 25.3 H ABG O2 Saturation 94.8 ABG Base Excess 2.5 FiO2 2.5 L Sodium Cancelled Potassium Cancelled Chloride Cancelled Carbon Dioxide Cancelled Anion Gap Cancelled BUN Cancelled Creatinine Cancelled Est GFR ( Amer) Cancelled Est GFR (Non-Af Amer) Cancelled Glucose Cancelled Calcium Cancelled Total Bilirubin Cancelled AST Cancelled ALT Cancelled Alkaline Phosphatase Cancelled Total Protein Cancelled Albumin Cancelled 08/30/18 06:24 WBC RBC Hgb Hct MCV MCH MCHC RDW Plt Count Seg Neutrophils % Lymphocytes % Monocytes % Eosinophils % Basophils % Absolute Neutrophils Absolute Lymphocytes Absolute Monocytes Absolute Eosinophils Absolute Basophils Carbonic Acid HCO3/H2CO3 Ratio ABG pH ABG pCO2 ABG pO2 ABG HCO3 ABG O2 Saturation ABG Base Excess FiO2 Sodium 142.0 Potassium 3.0 L* Chloride 108 H Carbon Dioxide 27 Anion Gap 7 BUN 18 Creatinine 0.63 Est GFR ( Amer) > 60 Est GFR (Non-Af Amer) > 60 Glucose 90 Calcium 8.1 L Total Bilirubin 0.9 AST 19 ALT 18 Alkaline Phosphatase 64 Total Protein 5.5 L Albumin 2.3 L 08/29/18 07:30 Catheterized Urine Urine Culture - Final 1,000 col/ml 08/28/18 08/28/18 08/28/18 13:07 13:07 22:42 Creatine Kinase < 20 L CK-MB (CK-2) < 0.22 Troponin I 0.013 < 0.012 Impressions: Chest CT 08/28/18 00:00 IMPRESSION: Marked cardiac enlargement Alveolar infiltrate in the right upper and lower lobe concerning for pneumonia with bilateral pleural effusions. Asymmetric edema is not excluded but thought less likely Patchy areas of atelectasis or early infiltrate on the left Numerous vertebral compression fractures as described Bilateral renal calculi Subcutaneous edema which may reflect anasarca Chest X-Ray 08/28/18 12:55 IMPRESSION: Cardiomegaly. Cannot exclude mild pulmonary edema. Cannot exclude limited right lower lobe pneumonia. Assessment & Plan - Diagnosis (1) Sepsis Qualifiers: Sepsis type: sepsis due to unspecified organism Qualified Code(s): A41.9 - Sepsis, unspecified organism Is this a current diagnosis for this admission?: Yes Plan: She has sepsis from pneumonia (2) Adult failure to thrive Is this a current diagnosis for this admission?: Yes (3) Bilateral pneumonia Qualifiers: Pneumonia type: due to unspecified organism Lung location: unspecified part of lung Qualified Code(s): J18.9 - Pneumonia, unspecified organism Is this a current diagnosis for this admission?: Yes (4) Staghorn calculus Is this a current diagnosis for this admission?: Yes (5) Dementia Qualifiers: Dementia type: Alzheimer's disease Alzheimer's disease onset: unspecified onset Dementia behavioral disturbance: with behavioral disturbance Qualified Code(s): G30.9 - Alzheimer's disease, unspecified; F02.81 - Dementia in other diseases classified elsewhere with behavioral disturbance Is this a current diagnosis for this admission?: Yes (6) Proteinuria Qualifiers: Proteinuria type: unspecified Qualified Code(s): R80.9 - Proteinuria, unspecified Is this a current diagnosis for this admission?: Yes (7) Cachexia Is this a current diagnosis for this admission?: Yes (8) Undernutrition Is this a current diagnosis for this admission?: Yes - Plan Summary Plan Summary: Patient prognosis extremely poor, I recommend comfort care, not able to get his son was out of town
[2018-08-30] MEDS: MIRTAZAPINE 15 MG TABLET PO SCH (21:47)
[2018-08-30] MEDS: MONTELUKAST SODIUM 10 MG TABLET PO SCH (21:47)
[2018-08-30] MEDS: ARIPIPRAZOLE 5 MG TABLET PO SCH (21:47)
[2018-08-30] MEDS: WARFARIN SODIUM 3 MG TABLET PO SCH (21:49)
[2018-08-31] MEDS: DILTIAZEM HCL 30 MG TABLET PO SCH ×3 (05:11→22:35)
[2018-08-31 07:59] LABS: ABSOLUTE LYMPHOCYTES (AUTO) 0.9 10^3/uL (0.5-4.7); ABSOLUTE MONOCYTES (AUTO) 0.2 10^3/uL (0.1-1.4); ABSOLUTE NEUT (AUTO) 4.3 10^3/uL (1.7-8.2); BASOPHILS % (AUTO) 0.5 % (0-2); EOSINOPHILS % (AUTO) 0.2 % (0-6); HEMATOCRIT 24.3 % (36.0-47.0); LYMPHOCYTES % (AUTO) 16.8 % (13-45); MEAN CORPUSCULAR HEMOGLOBIN 22.9 pg (27.0-33.4); MEAN CORPUSCULAR HGB CONC 31.2 g/dL (32.0-36.0); MEAN CORPUSCULAR VOLUME 73 fl (80-97); MONOCYTES % (AUTO) 3.4 % (3-13); PLATELET COUNT 118 10^3/uL (150-450); RED BLOOD COUNT 3.31 10^6/uL (3.72-5.28); RED CELL DISTRIBUTION WIDTH 22.1 % (11.5-14.0); SEGMENTED NEUTROPHILS % (AUTO) 79.1 % (42-78); TOTAL CELLS COUNTED % (AUTO) 100 %; WHITE BLOOD COUNT 5.4 10^3/uL (4.0-10.5)
[2018-08-31 08:06] LABS: HEMOGLOBIN 7.6 g/dL (12.0-15.5)
[2018-08-31 08:19] LABS: ALANINE AMINOTRANSFERASE 17 U/L (9-52); ALBUMIN 2.2 g/dL (3.5-5.0); ALKALINE PHOSPHATASE 64 U/L (38-126); ANION GAP 6 (5-19); ASPARTATE AMINO TRANSFERASE 22 U/L (14-36); BILIRUBIN,DIRECT 0.6 mg/dL (0.0-0.4); BILIRUBIN,TOTAL 0.9 mg/dL (0.2-1.3); BLOOD UREA NITROGEN 20 mg/dL (7-20); CARBON DIOXIDE 26 mmol/L (22-30); CHLORIDE 111 mmol/L (98-107); GLUCOSE 77 mg/dL (75-110); POTASSIUM 3.6 mmol/L (3.6-5.0); SODIUM 143.1 mmol/L (137-145); TOTAL PROTEIN 5.3 g/dL (6.3-8.2)
[2018-08-31] MEDS: RIVASTIGMINE 9.5 MG/24 HR PATCH.TD24 TOP SCH (08:26)
[2018-08-31] MEDS: IPRATROPIUM/ALBUTEROL 0.5-2.5 MG/3 ML AMPUL NEB PRN (10:16)
[2018-08-31] MEDS: CEFEPIME 1 GM/D5W RTU 1 GM/50 ML RTUPB IV SCH (10:48)
[2018-08-31] MEDS: SERTRALINE HCL 50 MG TABLET PO SCH (10:50)
[2018-08-31] MEDS: POTASSIUM CHLORIDE 20 MEQ/15 ML UDCUP PO SCH (10:50)
[2018-08-31] MEDS: MULTIVITAMIN TABLET PO SCH (10:50)
[2018-08-31] MEDS: ALISKIREN HEMIFUMARATE 150 MG TABLET PO SCH (10:50)
[2018-08-31] MEDS: CYANOCOBALAMIN (VITAMIN B-12) 1,000 MCG TABLET PO SCH (10:50)
[2018-08-31] MEDS: CALCIUM CARBONATE 250 MG/VITAMIN D3 125 UNIT TABLET PO SCH ×2 (10:50→18:37)
[2018-08-31] MEDS: SENNOSIDES/DOCUSATE 8.6-50 MG 1 EACH TABLET PO SCH ×2 (10:50→22:36)
[2018-08-31] MEDS: LEVOFLOXACIN 750 MG/D5W RTU 750 MG/150 ML RTUPB IV SCH (12:24)
--- NOTE | 2018-08-31 18:31 | PDOC PROGRESS REPORT ---
Subjective Progress Note for:: 08/31/18 Subjective:: Patient was seen by the bedside, I saw the daughter in the room I spoke to her and advised her about prognosis. She is open to the idea of comfort care but the the brother is the POA and presently out of town. She has anemia probably related to dilution or sepsis but she is not a candidate for blood transfusion on the basis of rastafarian ,she is a Jehovah witness. Reason For Visit: PNEUMONIA, FAILED OUTPATIENT TREATMENT Physical Exam Vital Signs: Temp Pulse Resp BP Pulse Ox 97.6 F 101 H 19 145/41 H 96 08/31/18 12:00 08/31/18 12:00 08/31/18 12:00 08/31/18 12:00 08/31/18 16:00 Pulse Oximeter Continuous Start: 08/28/18 19:51 Freq: RTQ4 Status: Active Protocol: Document 08/31/18 16:00 [facility] (Rec: 08/31/18 18:02 [facility] [id number]) Pulse Oximetry Assessment Oxygen Saturation (92-100) 96 Oxygen Flow Rate (L/min) 5 Oxygen Delivery Method Nasal Cannula Fraction of Inspired Oxygen (FIO2) 40 Equipment Usage Equipment in Use Continuous SpO2 Machine # 5 Intake & Output 08/30/18 08/31/18 09/01/18 06:59 06:59 06:59 Intake Total 1523 1318 Balance 1523 1318 Weight 46.3 kg 46.2 kg Head exam: PRESENT: other - Elderly female she looks somewhat better today compared to the last 2 days Respiratory exam: PRESENT: retraction Cardiovascular exam: PRESENT: +S1, +S2 Neurological exam: PRESENT: alert Results Laboratory Results: 08/31/18 06:10 08/31/18 06:10 08/31/18 08/31/18 06:10 06:10 WBC 5.4 RBC 3.31 L Hgb 7.6 L Hct 24.3 L MCV 73 L MCH 22.9 L MCHC 31.2 L RDW 22.1 H Plt Count 118 L Seg Neutrophils % 79.1 H Lymphocytes % 16.8 Monocytes % 3.4 Eosinophils % 0.2 Basophils % 0.5 Absolute Neutrophils 4.3 Absolute Lymphocytes 0.9 Absolute Monocytes 0.2 Absolute Eosinophils 0.0 Absolute Basophils 0.0 Sodium 143.1 Potassium 3.6 Chloride 111 H Carbon Dioxide 26 Anion Gap 6 BUN 20 Creatinine 0.52 Est GFR ( Amer) > 60 Est GFR (Non-Af Amer) > 60 Glucose 77 Calcium 8.0 L Total Bilirubin 0.9 AST 22 ALT 17 Alkaline Phosphatase 64 Total Protein 5.3 L Albumin 2.2 L 08/28/18 08/28/18 08/28/18 13:07 13:07 22:42 Creatine Kinase < 20 L CK-MB (CK-2) < 0.22 Troponin I 0.013 < 0.012 Impressions: Chest CT 08/28/18 00:00 IMPRESSION: Marked cardiac enlargement Alveolar infiltrate in the right upper and lower lobe concerning for pneumonia with bilateral pleural effusions. Asymmetric edema is not excluded but thought less likely Patchy areas of atelectasis or early infiltrate on the left Numerous vertebral compression fractures as described Bilateral renal calculi Subcutaneous edema which may reflect anasarca Chest X-Ray 08/28/18 12:55 IMPRESSION: Cardiomegaly. Cannot exclude mild pulmonary edema. Cannot exclude limited right lower lobe pneumonia. Assessment & Plan - Diagnosis (1) Sepsis Qualifiers: Sepsis type: sepsis due to unspecified organism Qualified Code(s): A41.9 - Sepsis, unspecified organism Is this a current diagnosis for this admission?: Yes (2) Adult failure to thrive Is this a current diagnosis for this admission?: Yes (3) Bilateral pneumonia Qualifiers: Pneumonia type: due to unspecified organism Lung location: unspecified part of lung Qualified Code(s): J18.9 - Pneumonia, unspecified organism Is this a current diagnosis for this admission?: Yes Plan: Continue IV antibiotic (4) Staghorn calculus Is this a current diagnosis for this admission?: Yes (5) Dementia Qualifiers: Dementia type: Alzheimer's disease Alzheimer's disease onset: unspecified onset Dementia behavioral disturbance: with behavioral disturbance Qualified Code(s): G30.9 - Alzheimer's disease, unspecified; F02.81 - Dementia in other diseases classified elsewhere with behavioral disturbance Is this a current diagnosis for this admission?: Yes (6) Proteinuria Qualifiers: Proteinuria type: unspecified Qualified Code(s): R80.9 - Proteinuria, unspecified Is this a current diagnosis for this admission?: Yes (7) Cachexia Is this a current diagnosis for this admission?: Yes (8) Undernutrition Is this a current diagnosis for this admission?: Yes (9) Anemia Qualifiers: Anemia type: unspecified type Qualified Code(s): D64.9 - Anemia, unspecified Is this a current diagnosis for this admission?: Yes Plan: The etiology is multifactorial, she is not a candidate for blood transfusion on the basis of rastafarian, she is a Jehovah witness
[2018-08-31] MEDS: POLYVINYL ALCOHOL 1.4% OPH SOLN 15 ML OU SCH (18:37)
[2018-08-31] MEDS: ARIPIPRAZOLE 5 MG TABLET PO SCH (22:35)
[2018-08-31] MEDS: WARFARIN SODIUM 3 MG TABLET PO SCH (22:36)
[2018-08-31] MEDS: MIRTAZAPINE 15 MG TABLET PO SCH (22:36)
[2018-08-31] MEDS: NORMAL SALINE 1000 ML 1,000 ML IV PRN (22:37)
[2018-08-31] MEDS: MONTELUKAST SODIUM 10 MG TABLET PO SCH (22:37)
[2018-09-01] MEDS: DILTIAZEM HCL 30 MG TABLET PO SCH ×3 (06:23→22:53)
[2018-09-01] MEDS: CEFEPIME 1 GM/D5W RTU 1 GM/50 ML RTUPB IV SCH (10:45)
[2018-09-01] MEDS: ENOXAPARIN SODIUM INJ 40 MG/0.4 ML DISP.SYRIN SUBCUT SCH (10:49)
[2018-09-01] MEDS: POTASSIUM CHLORIDE 20 MEQ/15 ML UDCUP PO SCH (10:53)
[2018-09-01] MEDS: SENNOSIDES/DOCUSATE 8.6-50 MG 1 EACH TABLET PO SCH ×2 (10:54→22:53)
[2018-09-01] MEDS: POLYVINYL ALCOHOL 1.4% OPH SOLN 15 ML OU SCH ×2 (10:54→17:24)
[2018-09-01] MEDS: SERTRALINE HCL 50 MG TABLET PO SCH (10:54)
[2018-09-01] MEDS: CYANOCOBALAMIN (VITAMIN B-12) 1,000 MCG TABLET PO SCH (10:54)
[2018-09-01] MEDS: CALCIUM CARBONATE 250 MG/VITAMIN D3 125 UNIT TABLET PO SCH ×2 (10:54→17:24)
[2018-09-01] MEDS: MULTIVITAMIN TABLET PO SCH (10:54)
[2018-09-01] MEDS: RIVASTIGMINE 9.5 MG/24 HR PATCH.TD24 TOP SCH (10:58)
[2018-09-01] MEDS: ALISKIREN HEMIFUMARATE 150 MG TABLET PO SCH (10:59)
--- NOTE | 2018-09-01 20:15 | PDOC PROGRESS REPORT ---
Subjective Progress Note for:: 09/01/18 Subjective:: Patient was seen by the bedside, I had a long discussion with patient's family about prognosis and plan of care, she has advanced dementia, severe cachexia, essentially end-of-life situation I recommended hospice/comfort care with the POA and other family members, they were all in agreement with the recommendation ,the patient will be discharged back to care home tomorrow with hospice/comfort care. Reason For Visit: PNEUMONIA, FAILED OUTPATIENT TREATMENT Physical Exam Vital Signs: Temp Pulse Resp BP Pulse Ox 98.1 F 90 22 H 131/48 H 98 09/01/18 00:00 09/01/18 00:00 09/01/18 00:00 09/01/18 00:00 09/01/18 16:14 Pulse Oximeter Continuous Start: 08/28/18 19:51 Freq: RTQ4 Status: Active Protocol: Document 09/01/18 16:14 [facility] (Rec: 09/01/18 16:15 [facility] [id number]) Pulse Oximetry Assessment Oxygen Saturation (92-100) 98 Oxygen Flow Rate (L/min) 2 Oxygen Delivery Method Nasal Cannula Fraction of Inspired Oxygen (FIO2) 28 Equipment Usage Equipment in Use Continuous SpO2 Machine # 5 Intake & Output 08/31/18 09/01/18 09/02/18 06:59 06:59 06:59 Intake Total 1318 1920 1554 Balance 1318 1920 1554 Weight 46.2 kg 45.6 kg Eye exam: PRESENT: PERRLA Respiratory exam: PRESENT: rhonchi Cardiovascular exam: PRESENT: +S1, +S2 Results Laboratory Results: 08/31/18 06:10 08/31/18 06:10 08/28/18 08/28/18 08/28/18 13:07 13:07 22:42 Creatine Kinase < 20 L CK-MB (CK-2) < 0.22 Troponin I 0.013 < 0.012 Impressions: Chest CT 08/28/18 00:00 IMPRESSION: Marked cardiac enlargement Alveolar infiltrate in the right upper and lower lobe concerning for pneumonia with bilateral pleural effusions. Asymmetric edema is not excluded but thought less likely Patchy areas of atelectasis or early infiltrate on the left Numerous vertebral compression fractures as described Bilateral renal calculi Subcutaneous edema which may reflect anasarca Chest X-Ray 08/28/18 12:55 IMPRESSION: Cardiomegaly. Cannot exclude mild pulmonary edema. Cannot exclude limited right lower lobe pneumonia. Assessment & Plan - Diagnosis (1) Sepsis Qualifiers: Sepsis type: sepsis due to unspecified organism Qualified Code(s): A41.9 - Sepsis, unspecified organism Is this a current diagnosis for this admission?: Yes (2) Adult failure to thrive Is this a current diagnosis for this admission?: Yes (3) Bilateral pneumonia Qualifiers: Pneumonia type: due to unspecified organism Lung location: unspecified part of lung Qualified Code(s): J18.9 - Pneumonia, unspecified organism Is this a current diagnosis for this admission?: Yes (4) Staghorn calculus Is this a current diagnosis for this admission?: Yes (5) Dementia Qualifiers: Dementia type: Alzheimer's disease Alzheimer's disease onset: unspecified onset Dementia behavioral disturbance: with behavioral disturbance Qualified Code(s): G30.9 - Alzheimer's disease, unspecified; F02.81 - Dementia in other diseases classified elsewhere with behavioral disturbance Is this a current diagnosis for this admission?: Yes (6) Proteinuria Qualifiers: Proteinuria type: unspecified Qualified Code(s): R80.9 - Proteinuria, unspecified Is this a current diagnosis for this admission?: Yes (7) Cachexia Is this a current diagnosis for this admission?: Yes (8) Undernutrition Is this a current diagnosis for this admission?: Yes (9) Anemia Qualifiers: Anemia type: unspecified type Qualified Code(s): D64.9 - Anemia, unspecifi ed Is this a current diagnosis for this admission?: Yes
--- NOTE | 2018-09-01 20:28 | PDOC TRANSFER SUMMARY ---
General - Admit/Disc Date/PCP Admission Date/Primary Care Provider: 08/28/18 14:12 BORWN CHOU MD Discharge Date: 09/02/18 - Discharge Diagnosis (1) Sepsis Is this a current diagnosis for this admission?: Yes (2) Adult failure to thrive Is this a current diagnosis for this admission?: Yes (3) Bilateral pneumonia Is this a current diagnosis for this admission?: Yes (4) Staghorn calculus Is this a current diagnosis for this admission?: Yes (5) Dementia Is this a current diagnosis for this admission?: Yes (6) Proteinuria Is this a current diagnosis for this admission?: Yes (7) Cachexia Is this a current diagnosis for this admission?: Yes (8) Undernutrition Is this a current diagnosis for this admission?: Yes (9) Anemia Is this a current diagnosis for this admission?: Yes - Additional Information Resuscitation Status: Do Not Resuscitate Prescriptions: Morphine Sulfate [Morphine Oral Soln 10 Mg/5 Ml Udcup] 10 mg PO Q6H #120 [facility] [place] Medications: Aripiprazole [Abilify 5 mg Tablet] 5 mg PO QHS 08/28/18 Calcium Carbonate/Vitamin D3 [Calcium 600 + Vit D 400 Tablet] 1 tab PO BID 08/28/18 Diltiazem HCl [Cardizem 30 mg Tablet] 30 mg PO Q8 08/28/18 Propylene Glycol/Peg 400/Pf [Systane 0.3-0.4% Eye Drop] 1 drop OU BID 08/28/18 Sertraline HCl [Zoloft 50 mg Tablet] 50 mg PO DAILY 08/28/18 Morphine Sulfate [Morphine Oral Soln 10 Mg/5 Ml Udcup] 10 mg PO Q6H #120 [facility] [place]/01/18 History of Present Illness Admission Date/PCP: 08/28/18 14:12 BROWN CHOU MD History of Present Illness: JONATHAN OROZCO is a 87 year old female, she has multiple comorbid conditions, very advanced dementia, resident of the retirement at [facility], she was transferred from the retirement to the emergency room at [facility] for evaluation of pneumonia. She was treated at the retirement for right lower lobe pneumonia with antibiotic Levaquin for the last 7 days, patient condition continues to decline, she is more symptomatic with increased work of breathing. I received a call from the retirement staff that patient condition was not improving a retirement staff was requesting to have another chest x- ray done, I advised the retirement staff to call the family to find out what plan of action they preferred for the patient knowing that patient is advanced dementia with adult failure to thrive and to me she looks like she is moribund, family preferred that patient be referred to the hospital. In the emergency room she was evaluated a chest x-ray was done that suggest pneumonia. CT chest of the lung was done without contrast demonstrated elongated aorta and calcified, coronary calcification, marked cardiac enlargement, bilateral pleural effusion, alveolar infiltrate in the right upper and right lower lobe concerning for pneumonia small amount of patchy density, atelectasis in the right middle lobe the left lung base. There is osteoporotic moderate compression at L1, severe compression at T12 also found was a staghorn calculus in the left kidney. No history could be obtained for this patient because of the advanced dementia, she has poor language skills, patient overall condition is very poor, she is a DNR status. Hospital Course Hospital Course: Patient was admitted for the management of sepsis due to bilateral pneumonia, she has advanced dementia with extremely poor Social function and performance status. She was moribund on admission, extremely cachectic ,a DNR status overall poor prognosis, she was treated with IV antibiotic cefepime and Levaquin. Patient is a resident of the retirement at [facility], she was transferred from the retirement to the hospital after outpatient treatment failure for pneumonia. She also developed anemia etiology of which is multifactorial but patient was not transfused with red blood cells based on restorationism grounds, she is a Jehovah witness she does not receive blood transfusion, after consultation with patient's POA and all family members it was agreed upon to transition her care to hospice and comfort care she was transferred to the retirement essentially for comfort care and for hospice. Physical Exam Vital Signs: Temp Pulse Resp BP Pulse Ox 98.1 F 90 22 H 131/48 H 98 09/01/18 00:00 09/01/18 00:00 09/01/18 00:00 09/01/18 00:00 09/01/18 16:14 Pulse Oximeter Continuous Start: 08/28/18 19:51 Freq: RTQ4 Status: Active Protocol: Document 09/01/18 16:14 [facility] (Rec: 09/01/18 16:15 [facility] [id number]) Pulse Oximetry Assessment Oxygen Saturation (92-100) 98 Oxygen Flow Rate (L/min) 2 Oxygen Delivery Method Nasal Cannula Fraction of Inspired Oxygen (FIO2) 28 Equipment Usage Equipment in Use Continuous SpO2 Machine # 5 Intake & Output 08/31/18 09/01/18 09/02/18 06:59 06:59 06:59 Intake Total 1318 1920 1554 Balance 1318 1920 1554 Weight 46.2 kg 45.6 kg General appearance: PRESENT: other - Patient alert very cachectic Respiratory exam: PRESENT: rhonchi Cardiovascular exam: PRESENT: +S1, +S2 GI/Abdominal exam: PRESENT: soft Neurological exam: PRESENT: alert Results Laboratory Results: 08/31/18 06:10 08/31/18 06:10 08/28/18 08/28/18 08/28/18 13:07 13:07 22:42 Creatine Kinase < 20 L CK-MB (CK-2) < 0.22 Troponin I 0.013 < 0.012 Impressions: Chest CT 08/28/18 00:00 IMPRESSION: Marked cardiac enlargement Alveolar infiltrate in the right upper and lower lobe concerning for pneumonia with bilateral pleural effusions. Asymmetric edema is not excluded but thought less likely Patchy areas of atelectasis or early infiltrate on the left Numerous vertebral compression fractures as described Bilateral renal calculi Subcutaneous edema which may reflect anasarca Chest X-Ray 08/28/18 12:55 IMPRESSION: Cardiomegaly. Cannot exclude mild pulmonary edema. Cannot exclude limited right lower lobe pneumonia. Qualifiers - * PATIENT BEING DISCHARGED WITH ANY OF THE FOLLOWING DIAGNOSIS: No
[2018-09-01] MEDS: ARIPIPRAZOLE 5 MG TABLET PO SCH (22:52)
[2018-09-01] MEDS: MONTELUKAST SODIUM 10 MG TABLET PO SCH (22:53)
[2018-09-01] MEDS: MIRTAZAPINE 15 MG TABLET PO SCH (22:53)
[2018-09-02] MEDS: DILTIAZEM HCL 30 MG TABLET PO SCH (06:06)
[2018-09-02] MEDS: RIVASTIGMINE 9.5 MG/24 HR PATCH.TD24 TOP SCH (08:23)
[2018-09-02] MEDS: CEFEPIME 1 GM/D5W RTU 1 GM/50 ML RTUPB IV SCH (08:54)
[2018-09-02] MEDS: POTASSIUM CHLORIDE 20 MEQ/15 ML UDCUP PO SCH (09:48)
[2018-09-02] MEDS: POLYVINYL ALCOHOL 1.4% OPH SOLN 15 ML OU SCH (09:48)
[2018-09-02] MEDS: CALCIUM CARBONATE 250 MG/VITAMIN D3 125 UNIT TABLET PO SCH (09:49)
[2018-09-02] MEDS: SERTRALINE HCL 50 MG TABLET PO SCH (09:49)
[2018-09-02] MEDS: ALISKIREN HEMIFUMARATE 150 MG TABLET PO SCH (09:49)
[2018-09-02] MEDS: CYANOCOBALAMIN (VITAMIN B-12) 1,000 MCG TABLET PO SCH (09:49)
[2018-09-02] MEDS: MULTIVITAMIN TABLET PO SCH (09:49)
[2018-09-02] MEDS: SENNOSIDES/DOCUSATE 8.6-50 MG 1 EACH TABLET PO SCH (09:49)
[2018-09-02] MEDS: ENOXAPARIN SODIUM INJ 40 MG/0.4 ML DISP.SYRIN SUBCUT SCH (09:49)
[2018-09-02] MEDS: LEVOFLOXACIN 750 MG/D5W RTU 750 MG/150 ML RTUPB IV SCH (10:11)
[2018-09-02 12:26] VITALS: BP 110/62
[2019-09-11] MEDS ORDERED: ERGOCALCIFEROL (VITAMIN D2) 50000 UNIT (1.25 MG) CAPSULE PO SCH (10:00)
== END 2018-09-02 13:15 | DRG 871 ==
LOC: ER 12:37 → EH 14:12 → 4N 20:52
PROVIDERS: ADMIT Internal Medicine; ATTEND Internal Medicine
DX: A41.9 Sepsis, unspecified organism (principal); J18.1 Lobar pneumonia, unspecified organism; R64 Cachexia; E46 Unspecified protein-calorie malnutrition; J98.11 Atelectasis; Z68.1 Body mass index [BMI] 19.9 or less, adult; I11.0 Hypertensive heart disease with heart failure; I50.9 Heart failure, unspecified; I48.91 Unspecified atrial fibrillation; D64.9 Anemia, unspecified; G30.9 Alzheimer's disease, unspecified; F02.80 Dementia in other diseases classified elsewhere, unspecified severity, without behavioral disturbance, psychotic disturbance, mood disturbance, and anxiety; R62.7 Adult failure to thrive; Z66 Do not resuscitate; I25.10 Atherosclerotic heart disease of native coronary artery without angina pectoris; E78.5 Hyperlipidemia, unspecified; K21.9 Gastro-esophageal reflux disease without esophagitis; M19.90 Unspecified osteoarthritis, unspecified site; F32.9 Major depressive disorder, single episode, unspecified; N20.0 Calculus of kidney; R80.9 Proteinuria, unspecified; M81.0 Age-related osteoporosis without current pathological fracture; R09.02 Hypoxemia; I25.2 Old myocardial infarction; Z87.891 Personal history of nicotine dependence; Z79.82 Long term (current) use of aspirin
CPT/HCPCS: 36415; 36600; 71045; 71250; 80053; 81001; 82550; 82553; 82570; 82803; 83036; 83605; 84156; 84484; 85025; 85610; 87040; 87086; 93005; 93010; 94640; 94762; 99285; J0692; J1650; J1956; J2270; J3370; J3490; J7030; J7620